=== PATIENT | male | born 1975 | race American Indian/Alaskan Native ===

== ENCOUNTER 2017-04-30 00:57 | Emergency (ER) | payer BC ==
--- NOTE | 2017-04-30 02:49 | Cat Scan Report ---
FINAL REPORT EXAM: CT Head w/o Contrast CLINICAL INDICATIONS: FACIAL WEAKNESS, NUMBNESS FINDINGS: Unenhanced CT of the brain was performed and demonstrates no acute intracranial hemorrhage, extra-axial fluid collection, midline shift or mass effect. The ventricles and basal cisterns are not effaced. The mastoid air cells and middle ears appear clear. There is an air-fluid level in the left maxillary sinus consistent with acute sinusitis. IMPRESSION: NO ACUTE INTRACRANIAL HEMORRHAGE. ACUTE LEFT MAXILLARY SINUSITIS
[2017-04-30] MEDS ORDERED: ULTRAM PO ONE (02:56)
[2017-04-30] MEDS ORDERED: DELTASONE PO ONE (02:56)
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
[2017-04-30 03:49] VITALS: BP 135/93
== END 2017-04-30 03:51 | disposition home or self-care (01) ==
LOC: ED 00:57
DX: G51.0 Bell's palsy (principal); J01.00 Acute maxillary sinusitis, unspecified
CPT/HCPCS: 70450; 99283; J7512